=== PATIENT | female | born 1935 | race Caucasian/White ===

== ENCOUNTER 2016-03-12 00:36 | Emergency (ER) | payer MEDICARE, BC ==
[2016-03-12 00:36] VITALS: BMI 29.2
[2016-03-12 00:54] VITALS: TEMP 98.6
[2016-03-12] MEDS ORDERED: FUROSEMIDE 40 MG/4 ML VIAL IV ONE (01:07)
--- NOTE | 2016-03-12 01:41 | EDPRACDOC ---
- General Information Chief Complaint: Ankle Pain Stated Complaint: FOOT SWELLING Time Seen by Provider: 03/12/16 01:06 Information Source: Patient Mode of Arrival: Car Home Medications: Home Medications Alprazolam [Xanax] 0.125 - 0.25 mg PO DAILY PRN 07/28/12 Aspirin [Aspirin EC] 162 mg PO DAILY 07/28/12 Cholecalciferol [Vitamin D3 (cholecalciferol)] 1,000 units PO BID 07/28/12 Desipramine HCl 75 mg PO HS 07/28/12 Fenofibrate 160 mg PO DAILY 07/28/12 Fluoxetine HCl 40 mg PO DAILY 07/28/12 Folic Acid/Vitamin B Comp W-C [B-Complex Folic Acid-Vit C Tab] 400 mcg PO DAILY 07/28/12 Glucosa [place] 2Kcl/Chondroitin [place] [Glucosamine & Chondroitin Cap] 2 cap PO DAILY Metoprolol Tartrate [Lopressor] 100 mg PO BID 07/28/12 Omeprazole [Prilosec] 20 mg PO DAILY 07/28/12 Valsartan [Diovan] 320 mg PO HS 07/28/12 Ketorolac Tromethamine [Toradol] 10 mg PO Q6H PRN #20 tab 10/24/14 Furosemide [Lasix] 40 mg PO DAILY #10 tablet 03/12/16 Potassium Chloride [K-Dur] 10 meq PO DAILY #14 tab 03/12/16 Allergies/Adverse Reactions: Allergies Allergy/AdvReac Type Severity Reaction Status Date / Time No Known Allergies Allergy Verified 10/24/14 20:09 - History of Present Illness Onset: SEVERAL DAYS Ankle Problem Location: Reports: Right, Left Mechanism: Reports: None, Other (INCREASE SALT BURDEN WITH TAKE OUT FOOD) Able to Bear Weight: Fully Pain Severity: Reports: Mild Associated Signs & Symptoms: Reports: None, Bruising, Swelling (ANKLE FOOT), Knee Pain (CHRONIC AND UNCHANGED). Denies: Fever, Laceration, Numbness, Weakness, Foot Pain, Leg Pain Other History: SEVERAL DAYS OF BILATERAL LOWER EXTREMITY SWELLING RIGHT GREATER THAN LEFT. THE RIGHT LEG IS USUALLY MORE SWOLLEN THAN THE OTHER, SHE HAS CHRONIC RIGHT KNEE ARTHROPATHY. ED Past Medical History - History Reviewed Yes Nurses notes reviewed and agree except as marked - Patient Medical History Cardiac History: Reports: Hypertension Respiratory History: Reports: Asthma GI/ History: Reports: Gastroesophageal Reflux Psychological History: Denies: Depression Surgical History: Reports: Cholecystectomy, Tonsillectomy/Adnoidectomy - Social Medical History Smoking Status: Never smoker ETOH: None Substance Abuse: None Lives With: Alone ([facility] IN [place] Lives In: Home EDM Review of Systems - Review of Systems ROS Negative Except as Marked: Yes All systems reviewed and were negative except as marked - Physical Exam Constitutional: No apparent distress, Alert Last recorded Vital Signs: Last Vital Signs Temp 98.6 F 03/12/16 00:47 Pulse 71 03/12/16 01:37 Resp 20 03/12/16 01:36 BP 171/74 03/12/16 01:37 Pulse Ox 97 03/12/16 01:36 Oxygen Pulse Oxygen Saturation 97 O2 Device Room Air Oxygen Flow Rate Fraction of Inspired Oxygen ( FIO2) - HEENT Eye Exam: Normal. negative: Edema Oropharynx: Normal. negative: Red Neck: Normal. negative: Edema, Limited ROM, Lymphadenopathy, Meningeal Signs - Respiratory/Cardiovascular Respiratory: Normal - CTA Cardiovascular: Normal - GI Auscultation: Normal Palpation: Normal Tenderness: Non tender - Musculoskeletal Extremities: Cyanosis (ALL 5 TOES RIGHT FOOT), Pedal Edema (BILATERAL LOWER EXTREMITIES 2+ PITTING EDEMA TO THE LEVEL OF MID CALF. RIGHT SLIGHTLY GREATER THAN LEFT.), Pedal Pulse (1+ DP LINDSAY, TOES WARM AND WELL PERFUSED.), Other ( BRUISING RIGHT 2-4 TOES AND VOLAR FOREFOOT. MILD TTP). negative: Calf Tenderness, Clubbing - Neurologic Memory Impaired: Normal Motor Function: Normal Thought: Coherent - Re-evaluation Re-evaluation 3 Re-evaluation Time: 02:47 (BP STILL ELEVATED. PT HAD LASIX, BEGINNING TO DIURES. JUST TOOK REG SCHED HOME MEDS. WILL WATCH FOR RESPONSE.) - Results 03/12/16 01:30 03/12/16 01:30 - Diagnostic Imaging Foot Image interpreted by: Radiologist Patient Name: SHAYLA BOONE LOC: ED : 1935 AGE: 80 Order Date:03/12/16 Date of Service: Report # [id number] Ord Physician: Latasha Guzmán MD Exam # [id number] Emergency Physician: Latasha Guzmán MD Exam(s): [id number] RAD/DG FOOT COMPLETE 3+V-R CLINICAL DATA: Pain, bruising, and swelling of the right forefoot. No known injury. EXAM: RIGHT FOOT COMPLETE - 3+ VIEW COMPARISON: MRI right foot 10/23/2005 FINDINGS: Degenerative changes most prominent in the first metatarsal-phalangeal joint. Degenerative changes in the intertarsal joints. Plantar and Achilles calcaneal spurs. Soft tissue swelling over the dorsum of the foot. No radiopaque soft tissue foreign bodies or soft tissue gas collections. Soft tissue swelling over the ankle. Soft tissue calcifications consistent with phleboliths. No evidence of acute fracture or dislocation. No focal bone erosion or cortical loss to suggest osteomyelitis. IMPRESSION: Degenerative changes. Soft tissue swelling. No acute bony abnormalities. Electronically Signed By: Kane Ocampo M.D. On: 03/12/2016 02:21 Electronically Signed By: Sudarshan Ocampo MD Electronically Signed Date/Time: Dictate Date/Time: 03/12/16218 Technologist: Brenda Johnson Transcribed By: Ally Transcribed Date/Time: 03/12/16220 - Departure Disposition: Home Final Diagnosis: Hypertensive urgency, Pedal edema Contusion of right foot Qualifiers: Encounter type: initial encounter Qualified Code(s): S90.31XA - Contusion of right foot, initial encounter Instructions: Chronic Hypertension (ED), RICE: Routine Care for Injuries, Foot Contusion (ED), Leg Edema (ED) Education/Counseling Given To: Patient Education/Counseling Given Regarding: Diagnosis, Treatment, Prognosis Referrals: Candelario You MD [Primary Care Provider] - One Week Prescriptions: Furosemide [Lasix] 40 mg PO DAILY #10 tablet Potassium Chloride [K-Dur] 10 meq PO DAILY #14 tab
[2016-03-12 01:47] LABS: AUTOMATED BASOPHIL 0.2 % (0-2); AUTOMATED EOSINOPHIL 7.9 % (0-5); AUTOMATED LYMPH 34.9 % (17-44); AUTOMATED MONOCYTE 10.5 % (3-10); AUTOMATED NEUTROPHIL 46.5 % (45-76)
[2016-03-12 01:55] LABS: BLOOD UREA NITROGEN 21 MG/DL (7-17); CALC CORRECTED 9.5 MG/DL (8.4-10.2); CALCIUM 9.3 MG/DL (8.4-10.2); CALCULATED OSMOLALITY 272 MOs/Kg (270-290); CHLORIDE 104 mEq/L (98-107); GLUCOSE 117 MG/DL (70-99); SODIUM LEVEL 139 mEq/L (137-146)
--- NOTE | 2016-03-12 02:24 | DIRPT ---
CLINICAL DATA: Pain, bruising, and swelling of the right forefoot. No known injury. EXAM: RIGHT FOOT COMPLETE - 3+ VIEW COMPARISON: MRI right foot 10/23/2005 FINDINGS: Degenerative changes most prominent in the first metatarsal-phalangeal joint. Degenerative changes in the intertarsal joints. Plantar and Achilles calcaneal spurs. Soft tissue swelling over the dorsum of the foot. No radiopaque soft tissue foreign bodies or soft tissue gas collections. Soft tissue swelling over the ankle. Soft tissue calcifications consistent with phleboliths. No evidence of acute fracture or dislocation. No focal bone erosion or cortical loss to suggest osteomyelitis. IMPRESSION: Degenerative changes. Soft tissue swelling. No acute bony abnormalities. Electronically Signed By: Kane Ocampo M.D. On: 03/12/2016 02:21
[2016-03-12 03:47] VITALS: BP 157/74; PULSE 68
== END 2016-03-12 03:46 | disposition home or self-care (01) ==
LOC: ED 00:36
DX: I16.0 Hypertensive urgency (principal); R60.0 Localized edema
CPT/HCPCS: 36415; 73630; 80053; 83880; 85025; 96374; 99284; J1940